=== PATIENT | male | born 1970 | race Caucasian/White ===

== ENCOUNTER → 2017-11-28 | Outpatient (CLI) | payer OTHER ==
--- NOTE | 2017-12-02 19:15 | ECHO ---
DATE OF SERVICE: 11/28/2017 INDICATIONS: A 47-year-old gentleman with coronary artery disease. An echocardiographic study was requested to further evaluate any structural heart disease, wall motion abnormality or functional heart condition. FINDINGS: 1. Study quality was unfortunately suboptimal to poor. 2. The underlying rhythm is sinus rhythm. 3. Overall, EF is around 50%. Myocardial alonzo were not optimally visualized for evaluation of wall motion abnormality. 4. Septal thickness was normal. 5. LV dimensions were not accurately measured. 6. RV size and EF were roughly normal. 7. Atrial size was normal. 8. Mitral valve was poorly seen. The gradient calculated to be around 1 mmHg, no stenosis can be conducted. I could not further comment on the mitral valve. 9. Aortic valve morphology is uncertain. The valve showed mild insufficiency. The valve velocity was around 0.7 meter per second with aortic valve area of 3.7 cm2. No further conclusion can be obtained about the aortic valve. 10. Mild tricuspid regurgitation. 11. No visible pericardial effusion. 12. Inferior vena cava was not well visualized. IMPRESSION: 1. Poor quality study, not enough to comment on wall motion abnormality or valvular heart structures. 2. Overall, EF around 55-60% with mild LVH. 3. RV size and EF were normal. 4. Atrial size was roughly normal. 5. Valvular structure showed suboptimal visualization. No gross abnormality can be seen. 6. Gradients and velocities were suboptimally calculated. 7. No visible pericardial effusion. 8. Inferior vena cava was not visualized. 9. Unable to calculate PA pressure due to poor alignment of the Doppler exam. Jennifer Figueroa MD DR: LASHAUN/forest JOB# [id number]
== END | disposition home or self-care (01) ==
LOC: RT 16:21
PROVIDERS: ATTEND Internal Medicine
DX: I25.119 Atherosclerotic heart disease of native coronary artery with unspecified angina pectoris (principal)
CPT/HCPCS: 93307